=== PATIENT | female | born 1945 | race Caucasian/White ===

== ENCOUNTER 2018-07-10 02:52 | Emergency (ER) | payer OTHER ==
[~2018-07-10] VITALS: Ht 160 cm; Wt 65.8 kg
[2018-07-10] MEDS ORDERED: CLARITIN5 MG (03:19)
[2018-07-10] MEDS ORDERED: IBUPROFEN800 MG (03:20)
[2018-07-10] MEDS ORDERED: ATIVAN0.5 M1 PO (05:09)
== END 2018-07-10 05:32 | disposition home or self-care (01) ==
LOC: ER 02:52
DX: S22.32XA Fracture of one rib, left side, initial encounter for closed fracture (principal); W18.39XA Other fall on same level, initial encounter; Y93.89 Activity, other specified; Y92.89 Other specified places as the place of occurrence of the external cause; Y99.8 Other external cause status